=== PATIENT | female | born 1975 | race Caucasian/White ===

== ENCOUNTER 2017-10-16 12:44 | Emergency (ER) | payer MEDICARE, MEDICAID ==
--- NOTE | 2017-10-16 14:23 | CT ---
CT FACIAL BONES WITH CORONAL AND SAGITTAL REFORMATIONS: HISTORY: Injury. Fall. Left-sided facial pain. FINDINGS: No facial bone fracture is seen. No temporomandibular dislocation is identified. POS: [facility] [place]
== END 2017-10-16 14:23 | disposition home or self-care (01) ==
LOC: SCSER 12:44
DX: S00.83XA Contusion of other part of head, initial encounter (principal); F41.9 Anxiety disorder, unspecified; F31.9 Bipolar disorder, unspecified; F43.10 Post-traumatic stress disorder, unspecified; Z87.891 Personal history of nicotine dependence; Z79.899 Other long term (current) drug therapy; W19.XXXA Unspecified fall, initial encounter
CPT/HCPCS: 70486

== ENCOUNTER 2017-11-04 12:04 | Observation (INO) | payer MEDICARE, MEDICAID ==
--- NOTE | 2017-11-04 12:27 | RAD ---
PORTABLE CHEST: History: Chest pain. Comparison: 01-24-14 FINDINGS: Lungs are clear. Heart and mediastinum appear unremarkable. Vascular markings are normal. IMPRESSION: No acute finding. POS: [facility]
[2017-11-04] MEDS ORDERED: Nitroglycerin 2% Ointment 1 INCH/1 GM Packet ONE (12:47)
[2017-11-04 12:48] LABS: #Basophils 0.1 thou/uL (0.0-0.2); #Eosinphils 0.2 thou/uL (0.0-0.7); #Lymphocytes 5.1 thou/uL (1.20-3.40); #Monocytes 1.8 thou/uL (0.11-0.59); #Neutrophils 11.4 thou/uL (1.40-6.50); %Basophils 0.4 % (0.0-1.0); %Eosinophils 1.2 % (0.0-10.0); %Lymphocytes 27.2 % (21.0-51.0); %Monocytes 9.6 % (0.0-10.0); %Neutrophils 61.6 % (42.0-75.0); Band 1 % (5-11); Eosinophils 1 % (0-10); Hemoglobin 17.4 g/dL (12.0-16.0); Lymphocytes 25 % (21-51); MDiff Complete? YES; Mean Corpuscular HGB CONC 33.6 g/dL (32.0-36.0); Mean Corpuscular Hemoglobin 29.4 pg (27.0-31.0); Mean Corpuscular Volume 87.6 fl (81.0-99.0); Mean Platelet Volume 6.9 fL (7.4-10.4); Monocytes 2 % (0-10); Neutrophil 64 % (42-75); Platelet Count 391 thou/uL (130-400); RBC Distribution Width 14.1 % (11.5-14.5); RBC Morphology Normal; Reactive Lymphocytes 6 % (0-10); Red Blood Cell (RBC) Count 5.91 mill/uL (4.20-5.40); White Blood Cell (WBC) Count 18.6 thou/uL (4.8-10.8)
[2017-11-04 13:03] LABS: Troponin I Less than 0.010 ng/mL (< 0.028)
[2017-11-04 13:09] LABS: ALT (SGPT) 24 U/L (8-55); AST (SGOT) 22 U/L (5-34); Albumin 4.3 g/dL (3.5-5.0); Alkaline Phosphatase 183 U/L (40-150); Anion Gap 17 mmol/L (10-20); BUN (Urea Nitrogen) 14 mg/dL (7.0-18.7); Bilirubin, Total 0.7 mg/dL (0.2-1.2); CK (CPK) 42 U/L (29-168); Calc. Creatinine Clearance 0 mL/min (70-130); Carbon Dioxide 20 mmol/L (22-29); Chloride 103 mmol/L (98-107); Estimated GFR-MDRD 83; Globulin 3.9 g/dL (2.4-3.5); Glucose 107 mg/dL (70-105); Potassium 3.6 mmol/L (3.5-5.1); Protein, Total 8.2 g/dL (6.0-8.3); Sodium 136 mmol/L (136-145)
[2017-11-04] MEDS ORDERED: Labetalol HCl 100 MG/20 ML VIAL ONE (13:37)
[2017-11-04 13:47] LABS: Lipase 17 U/L (8-78)
[2017-11-04 13:49] LABS: Bilirubin Negative (Negative); Blood, Urine Negative (Negative); Clarity CLEAR (Clear); Glucose, Urine (Dipstick) Negative (Negative); Leukocyte Negative (Negative); Nitrite Negative (Negative); Protein, Urine (Dipstick) Negative (Neg-Trace); pH, Urine 6.5 (5.0-9.0)
[2017-11-04] MEDS ORDERED: hydrALAZINE 20 MG/ML VIAL SLOW IVP PRN (15:18)
[2017-11-04 16:08] LABS: Troponin I Less than 0.010 ng/mL (< 0.028)
[2017-11-04] MEDS ORDERED: Ondansetron ODT 4 MG TAB PO PRN (16:34)
[2017-11-04] MEDS ORDERED: Acetaminophen 325 MG TAB PO PRN (16:34)
[2017-11-04 16:38] VITALS: BMI 31.2
[2017-11-04] MEDS ORDERED: Nitroglycerin 0.4 MG TAB (25 Tab Bottle) SL PRN (17:14)
[2017-11-04] MEDS ORDERED: clonazePAM 0.5 MG TAB PO PRN (17:19)
[2017-11-04 19:16] LABS: Troponin I 0.013 ng/mL (< 0.028)
--- NOTE | 2017-11-04 19:37 | HP-2 ---
CODE STATUS: FULL. PRIMARY CARE PHYSICIAN: Dr. Anderson. ATTENDING: Dr. Benjamin. RESIDENT: Dr. Atkinson. CHIEF COMPLAINT: Chest pain. HISTORY OF PRESENT ILLNESS: This is a 42-year-old female with 2-day history of chest pains and a 1-m [facility] history of recurrent syncope. She was sent over from Dr. Espino's office for high blood press ure and chest pain today. She said she gets diaphoretic, nauseous and lightheaded during these episo brad. She said that she has had at least 2 episodes of syncope during the last month as well. She st ates she feels weak often. She describes the pain as substernal and has improved with nitroglycerin. She does admit to palpitations at times. She denies any radiation of the pain. She denies any vom iting or diarrhea or recent illness at this time. No other complaints offered. In the ER, she was g iven nitroglycerin, aspirin, labetalol. PAST MEDICAL HISTORY: Significant for elevated blood pressure without a diagnosis of hypertension, e levated hemoglobin, elevated white blood cell count, PTSD, anxiety, depression, hidradenitis suppurat zara, ichthyosis and GERD. PAST SURGICAL HISTORY: Significant for bilateral lymph node dissections, knee surgeries, hysterectom y. ALLERGIES: CAFFEINE, CHOCOLATE PRODUCTS, SHELLFISH and AUGMENTIN. MEDICATIONS: Tramadol 50 mg, Imitrex 25 mg, ibuprofen 600 mg, Linzess 290 mcg, Nasacort, doxepin 100 mg, hydroxyzine 25 mg, Seroquel 300 mg, Klonopin 1 mg and sertraline 100 mg. FAMILY HISTORY: Significant for heart disease. SOCIAL HISTORY: She does admit to a 96-wuyr-cnuo smoking history. She quit 2 years ago. Denies any alcohol or drug use. REVIEW OF SYSTEMS: General: She does admit to fevers and chills. A 5-pound weight loss in the last week because her appetite has been poor and fatigue. ENT: Denies nasal congestion, rhinorrhea, sor e throat. Respiratory: Denies cough, congestion. She does admit to shortness of breath. Cardiovas cular: She denies chest pain, palpitations. Denies any edema. Gastrointestinal: She admits to isaac sea. Denies any vomiting, diarrhea, constipation, abdominal pain, or GI bleeding. Genitourinary: D enies incontinence, dysuria. Skin: She does admit to rashes and lesions. She has longstanding derm atologic condition. Neurologic: She admits to weakness into syncope. Psychiatric: She does admit to anxiety and depression. PHYSICAL EXAMINATION: VITAL SIGNS: Blood pressure 143/98, pulse is 65, respirations 15, temperature max 98.6, pulse oximet ry 98% on room air, current weight is 91 kilos. GENERAL: She is alert and oriented x4. Well-developed, appropriately interactive. HEENT: PERRLA. Conjunctivae within normal limits. ENT: Tympanic membranes were pearly espinoza without bulging or erythema. Nasal mucosa and oropharynx w ithin normal limits. NECK: Supple, no lymphadenopathy, no thyromegaly. CARDIOVASCULAR: Regular rate and rhythm. No murmurs, no gallops. Radial and pedal pulses equal ermias aterally. RESPIRATORY: Normal effort, no retractions. Lungs are clear to auscultation bilaterally. SKIN: Warm and dry. She does have whole body scaling lesions present. ABDOMEN: Soft, nontender to palpation. Bowel sounds are present x4. No mass or distention. EXTREMITIES: No clubbing, cyanosis or edema. MUSCULOSKELETAL: Structure, tone. Muscle strength and range of motion within normal limits. NEUROLOGIC: No focal neurologic deficits, sensation. Cranial nerves II-XII grossly intact. GCS was 15. PSYCHIATRIC: Appropriate. LABORATORY DATA: She had a white blood cell count of 18.6, platelet count 391, hemoglobin 17.4, stephanie tocrit 51.8, MCV 87.6, percent neutrophils 61.6. Sodium 136, potassium 3.6, chloride 103, bicarbonat e 20, BUN 14, creatinine 0.76, glucose 107. CK 42, CK-MB 1.0, troponin I less than 0.01. Calcium wa s 10.0, total protein 8.2. Albumin 4.3, total bilirubin 0.7, AST was 22, ALT was 24, alkaline phosph atase was 183. She had an EKG that showed normal sinus rhythm. Chest x-ray that showed nothing acut e. ASSESSMENT AND PLAN: A 42-year-old female with: 1. Atypical chest pain. We will trend her troponins. Get a repeat EKG. If she is symptomatic, we also put in for a mag, phos, TSH and a BNP. We have scheduled her for a stress and also fasting lipi d panel. The patient was seen at Dr. Espino's office and he said that he would see her later today , so we put in a formal consultation for Dr. Espino, we will also manage her blood pressure and her heart score was 2. 2. Hypertensive urgency. We will give her BP control with p.r.n. hydralazine as well as initiating hydrochlorothiazide. 3. Syncope. We are going to get an echo to determine if it is a cardiac cause. 4. Leukocytosis. We will track with a CBC. 5. Anxiety and depression. We will continue her home meds. DISPOSITION AND LENGTH OF HOSPITAL STAY: Will be observation and 1 day. Symptomatic medication will be provided. History and physical exam as well as management have been discussed with Dr. Travis.
[2017-11-04] MEDS: Nitroglycerin 2% Ointment 1 INCH/1 GM Packet TOP SCH (20:05)
[2017-11-04] MEDS ORDERED: clonazePAM 1 MG TAB PO SCH (21:00)
[2017-11-05 05:50] LABS: #Basophils 0.2 thou/uL (0.0-0.2); #Eosinphils 0.2 thou/uL (0.0-0.7); #Lymphocytes 4.3 thou/uL (1.20-3.40); #Monocytes 1.9 thou/uL (0.11-0.59); #Neutrophils 10.6 thou/uL (1.40-6.50); %Basophils 0.9 % (0.0-1.0); %Eosinophils 1.3 % (0.0-10.0); %Lymphocytes 25.3 % (21.0-51.0); %Monocytes 10.8 % (0.0-10.0); %Neutrophils 61.7 % (42.0-75.0); Hemoglobin 16.4 g/dL (12.0-16.0); Mean Corpuscular HGB CONC 34.3 g/dL (32.0-36.0); Mean Corpuscular Hemoglobin 29.8 pg (27.0-31.0); Mean Corpuscular Volume 86.9 fl (81.0-99.0); Mean Platelet Volume 7.3 fL (7.4-10.4); Platelet Count 333 thou/uL (130-400); RBC Distribution Width 14.1 % (11.5-14.5); Red Blood Cell (RBC) Count 5.49 mill/uL (4.20-5.40); White Blood Cell (WBC) Count 17.1 thou/uL (4.8-10.8)
[2017-11-05 06:14] LABS: Anion Gap 15 mmol/L (10-20); BUN (Urea Nitrogen) 18 mg/dL (7.0-18.7); Calc. Creatinine Clearance 136 mL/min (70-130); Calcium 9.5 mg/dL (7.8-10.44); Carbon Dioxide 22 mmol/L (22-29); Cardiac Risk 5.3 (Less than 4.5); Chloride 104 mmol/L (98-107); Cholesterol 224 mg/dl (< 200 Desired); Estimated GFR-MDRD 85; Glucose 112 mg/dL (70-105); HDL Cholesterol 42 mg/dL (>60 Neg Risk); LDL Cholesterol, Calculated 161 mg/dL; Phosphorus 3.5 mg/dL (2.3-4.7); Potassium 3.6 mmol/L (3.5-5.1); Sodium 137 mmol/L (136-145); Triglycerides 107 mg/dL (Less than 150)
[2017-11-05] MEDS ORDERED: Hydrochlorothiazide 25 MG TAB PO SCH (09:00)
[2017-11-05] MEDS ORDERED: Docusate 100 MG CAP PO SCH (09:00)
[2017-11-05] MEDS: Nitroglycerin 2% Ointment 1 INCH/1 GM Packet TOP SCH (10:27)
[2017-11-05 12:21] VITALS: TEMP 97.9
--- NOTE | 2017-11-05 13:03 | NM ---
MYOCARDIAL PERFUSION STUDY: DATE: 11/05/17. HISTORY: Chest pain. RADIOPHARMACEUTICALS: 32.7 mCi Technetium 99m sestamibi, IV at stress, and 9.1 mCi Technetium 99m sestamibi, IV at rest. MEDICATIONS: 16.4 mL (49.3 mg) adenosine, IV. FINDINGS: There is normal uptake and distribution of radiotracer seen throughout the left ventricular myocardiu m on the stress acquisition. No reversible defects are seen between the stress and resting acquisiti ons. Gated images demonstrate normal ventricular wall thickening with mild hypokinesis involving the septum. The calculated left ventricular ejection fraction is 57%. There is elevation in the transi ent ischemic dilatation ratio of 1.24. IMPRESSION: 1. Normal myocardial perfusion study without evidence of a reversible defect seen to suggest ischemi a. 2. Slight hypokinesis involving the septum. 3. Nonspecific elevation of the transient ischemic dilatation ratio which is 1.24. 4. Normal left ventricular ejection fraction of 57%. POS: [facility]
[2017-11-05] MEDS ORDERED: Sod Chloride/Lan/MO/Peet,Wh (Lubriderm) Lotion 180 ml Bottle TOP PRN (13:18)
[2017-11-05 13:29] VITALS: BP 139/102
--- NOTE | 2017-11-05 14:16 | PDOC.FM ---
- Subjective Subjective: No acute events overnight. Pt reports recurrence of symptoms with stress test, but otherwise feels better. She currently denies cp, sob, nvdc, pleuritic type pain. - Objective Vital Signs & Weight: Vital Signs (12 hours) Temp Pulse Resp BP BP Pulse Ox 11/05/17 13:25 81 139/102 H 11/05/17 12:18 97.9 F 90 20 167/105 H 96 11/05/17 08:00 98.2 F 96 16 11/05/17 07:42 98.2 F 96 16 135/100 H 97 11/05/17 03:50 98.4 F 101 H 20 107/81 95 Weight Weight 88.541 kg I&O: 11/04/17 11/05/17 11/06/17 06:59 06:59 06:59 Intake Total 1485 240 Output Total 400 Balance 1085 240 Result Diagrams: 11/05/17 05:32 11/05/17 05:32 <Burak Sarabia - Last Filed: 11/05/17 14:13> - Objective Vital Signs & Weight: Vital Signs (12 hours) Temp Pulse Resp BP BP Pulse Ox 11/05/17 13:25 81 139/102 H 11/05/17 12:18 97.9 F 90 20 167/105 H 96 11/05/17 08:00 98.2 F 96 16 11/05/17 07:42 98.2 F 96 16 135/100 H 97 Weight Weight 88.541 kg I&O: 11/04/17 11/05/17 11/06/17 06:59 06:59 06:59 Intake Total 1485 240 Output Total 400 Balance 1085 240 Result Diagrams: 11/05/17 05:32 11/05/17 05:32 <Jeanie García - Last Filed: 11/05/17 17:28> Phys Exam - Physical Examination Constitutional: NAD HEENT: PERRLA, sclera anicteric Neck: no JVD Respiratory: no wheezing, no rales, no rhonchi, clear to auscultation bilateral Cardiovascular: RRR, no significant murmur, no rub Gastrointestinal: soft, non-tender, no distention, positive bowel sounds Musculoskeletal: no edema, pulses present Neurological: non-focal, moves all 4 limbs Skin: no rash <Burak Sarabia Last Filed: 11/05/17 14:13> Dx/Plan (1) Atypical chest pain Code(s): R07.89 - OTHER CHEST PAIN Status: Acute (2) Hypertensive urgency Code(s): I16.0 - HYPERTENSIVE URGENCY Status: Acute (3) Anxiety Code(s): F41.9 - ANXIETY DISORDER, UNSPECIFIED Status: Acute (4) Depression Code(s): F32.9 - MAJOR DEPRESSIVE DISORDER, SINGLE EPISODE, UNSPECIFIED Status : Acute (5) PTSD (post-traumatic stress disorder) Code(s): F43.10 - POST-TRAUMATIC STRESS DISORDER, UNSPECIFIED Status: Acute - Plan Plan: -cardiology consulted, appreciate recommendations -cardizem added for BP control, will monitor -cardiac stress showed no evidence of ischemia -d-dimer ordered, per cardiology, will f/u with results and CT-A if positive -labile pressures, will titrate medications and dc when stable <Burak Sarabia - Last Filed: 11/05/17 14:13> Attending Addendum - Attending Addendum I personally evaluated the patient and discussed the management with Dr. Sarabia on 11/05/17. I agree with the History, Examination, Assessment and Plan documented above with any addition or exceptions noted below. Patient's DDimer negative, no further workup for PE needed. BPs markedly improved on Cardizem. Per cardiology, OK to discharge today. <Jeanie García - Last Filed: 11/05/17 17:28>
[2017-11-05] MEDS ORDERED: Mag-Al 1200 mg/1200 mg/30 ML UDCUP PO PRN (15:16)
[2017-11-05] MEDS ORDERED: Fluconazole 100 MG TAB PO SCH (16:00)
[2017-11-05] MEDS ORDERED: ADENOSINE 60 MG/20 ML VIAL ONE (16:08)
--- NOTE | 2017-11-06 07:15 | EKG ---
Test Reason : STAT Blood Pressure : / mmHG Vent. Rate : 115 BPM Atrial Rate : 115 BPM P-R Int : 122 ms QRS Dur : 084 ms QT Int : 340 ms P-R-T Axes : 066 061 071 degrees QTc Int : 470 ms Sinus tachycardia Possible Left atrial enlargement Borderline ECG When compared with ECG of 25-JUL-2015 10:48, Vent. rate has increased BY 46 BPM Confirmed by BILLIE GONZÁLES, SMichelle ([id number]) on 11/06/2017 7:14:52 AM Referred By: TAMIA Confirmed By:DR. Javad WISE MD
--- NOTE | 2017-11-08 11:07 | DIS-2 ---
LOCATION: [facility] in [place], [place]. DATE OF ADMISSION: 11/04/2017 DATE OF DISCHARGE: 11/05/2017 RESIDENT PHYSICIAN: Dr. Burak Sarabia. ADMITTING ATTENDING: Dr. Yenifer Benjamin. DISCHARGE ATTENDING: Dr. Jeanie García. CONSULTATIONS: None. PROCEDURES: 1. Chest x-ray done on 11/04/2017 showed no acute findings. 2. Nuclear medicine stress test done on 11/05/2017 showed normal myocardial perfusion without eviden ce of reversible defects seen to suggest ischemia. Slight hypokinesis involving the septum. Nonspec ific elevation of the transient ischemic dilatation ratio, which is 1.24. Normal left ventricular ej ection fraction of 57%. PRIMARY DIAGNOSIS: Atypical chest pain. SECONDARY DIAGNOSES: 1. Hypertensive urgency. 2. Vulvovaginal candidiasis. 3. Anxiety. 4. Depression. 5. Post-traumatic stress disorder. DISCHARGE MEDICATIONS: 1. Cardizem 180 mg p.o. daily. 2. Hydrochlorothiazide 12.5 mg p.o. daily. 3. Clonazepam 0.5 mg p.o. as needed. 4. Doxepin 100 mg p.o. at bedtime. 5. Hydroxyzine 25 mg 1-2 tabs p.o. q.4 hours. 6. Linzess 290 mcg p.o. on Wednesday, Wednesday, and Wednesday. 7. Seroquel 600 mg p.o. at bedtime. 8. Sertraline 200 mg p.o. at bedtime. DISCONTINUED MEDICATIONS: None. HISTORY OF PRESENT ILLNESS AND HOSPITAL COURSE: Patient is a 42-year-old female who came in with a 2 -day history of chest pain and 1-month history of recurrent syncope and she was sent over from her ca rdiologist, Dr. Espino's office for high blood pressure and chest pain. She reports diaphoresis, n ausea, lightheadedness during these episodes. Reports at least 2 episodes of syncope during the last month. She describes her pain as substernal, which was relieved with nitroglycerin. She also compl ained of palpitations at times. On admission to the ED, patient was found to have an elevated white count of 18.6, however, there is no bandemia noted. The patient was actually admitted or transferred to the ER because the hunter guide was concerned with possible pulmonary embolism. Her D-dimer on 0 11/05/2017 was found to be 0.43. Her electrolytes were within normal limits. A fasting lipid panel w as drawn. Triglycerides are found to be 107, cholesterol 224, LDL cholesterol 161, HDL cholesterol 4 2, lipase was 73. Her urinalysis was negative. Overall, the patient had uncomplicated hospital course was not found to have pulmonary embolism and a cute coronary syndrome was also ruled out. CK-MB was 1. Troponin I was less than 0.010 and 0.013. BNP was also drawn and found to be 20.1. DISPOSITION: 1. Patient left the hospital in stable condition. 2. Location: Home. 3. Diet: Heart healthy. 4. Activity: Ad-sheldon. 5. Followup: Follow up with primary care provider in 7-10 days and follow up with Dr. Michael Espino in 2-3 weeks following discharge. Patient's primary care provider is Dr. Won Anderson and she is to follow up in 7 days with him.
--- NOTE | 2017-11-18 20:43 | STRESS ---
Acquisition Time: 2017-11-05 11:07:51 Total Exercise Time: 00:04:00 Test Indications: CHEST PAIN Medications: Protocol: ADENOSINE Max HR: 090 BPM 51% of Pred: 176 BPM Max BP: 160/082 mmHG Max Work Load: 1.0 METS RESTING ECG: NORMAL SINUS RHYTHM AT 80 BPM SYMPTOMS: CHEST TIGHTNESS NORMAL BP RESPONSE ECTOPY: NONE ECG STRESS: NO SIGNIFICANT CHANGES INTERPRETATION: NEGATIVE ECG/AWAIT NUCLEAR IMAGES FOR DEFINITIVE DIAGNOSIS Confirmed by RAHUL UREÑA M.D. ([id number] on 11/18/2017 8:43:08 PM Referred By: MD Fracisco RIVAS Confirmed By:RAHUL UREÑA M.D.
== END 2017-11-05 17:24 | disposition home or self-care (01) ==
LOC: ERS 12:04 → 2SW 13:54
PROVIDERS: ADMIT Family Medicine; ATTEND Family Medicine
DX: R07.89 Other chest pain (principal); I16.0 Hypertensive urgency; I10 Essential (primary) hypertension; D72.829 Elevated white blood cell count, unspecified; F32.9 Major depressive disorder, single episode, unspecified; F41.9 Anxiety disorder, unspecified; F43.10 Post-traumatic stress disorder, unspecified; K21.9 Gastro-esophageal reflux disease without esophagitis; Z91.013 Allergy to seafood; Z91.018 Allergy to other foods; Z88.8 Allergy status to other drugs, medicaments and biological substances; Z90.710 Acquired absence of both cervix and uterus; Z98.890 Other specified postprocedural states; Z87.891 Personal history of nicotine dependence
CPT/HCPCS: 71045; 78452; 80048; 80053; 80061; 81003; 82550; 82553; 83690; 83735; 83880; 84100; 84484 ×2; 85025 ×2; 85379; 93005; 93017; 94760 ×3; 96374; 96375; 99285; A9500; G0378; 36415; 93010; J0153; J0360; Q0162

== ENCOUNTER 2017-11-29 09:13 | Outpatient (CLI) | payer MEDICARE, MEDICAID ==
[2017-11-29] MEDS ORDERED: Iopamidol 370 76% 100 ML VIAL ONE (11:10)
--- NOTE | 2017-11-29 11:52 | CT ---
CT ABDOMEN WITH AND WITHOUT IV CONTRAST: Date: 11/29/17 HISTORY: Hypertension, palpitations. FINDINGS: There are minimal dependent changes at the lung bases and trace pericardial effusion. There is a calc ified granuloma in the spleen. The liver, pancreas, adrenal glands, and kidneys are normal. No calcif ied gallstones are seen. No free air, free fluid, or lymphadenopathy seen in the abdomen. There are v ascular calcifications without evidence of aneurysmal dilatation of the abdominal aorta. The small georgie wel loops are not abnormally dilated. There are degenerative changes in the spine. IMPRESSION: 1. Trace pericardial effusion. 2. Calcified granuloma in the spleen. 3. No evidence of adrenal mass. POS: [facility]
== END 2017-11-29 09:14 | disposition home or self-care (01) ==
LOC: CT 09:13
PROVIDERS: ATTEND Family Medicine
DX: I10 Essential (primary) hypertension (principal); R00.2 Palpitations; R82.5 Elevated urine levels of drugs, medicaments and biological substances; D73.89 Other diseases of spleen
CPT/HCPCS: 74170

== ENCOUNTER 2018-01-07 13:33 | Outpatient (CLI) | payer MEDICARE, MEDICAID ==
--- NOTE | 2018-01-07 15:10 | ULT ---
PELVIC ULTRASOUND: HISTORY: Pelvic pain. Positive test. The patient is report to have had a previous total hysterecto my. TECHNIQUE: Transabdominal endovaginal imaging of the pelvis is performed. FINDINGS: No evidence of a uterus or adnexa. No evidence of free fluid. IMPRESSION: Unremarkable pelvic ultrasound. No evidence of expected normal pelvic structures. Given that the pa tient has a positive test, a gynecological consultation is recommended. Correlate for poss ible malignant process/neoplasm that is creating beta hCG. CODE T POS: [facility]
== END 2018-01-07 13:34 | disposition home or self-care (01) ==
LOC: ULT 13:33
PROVIDERS: ATTEND Family Medicine
DX: Z32.01 Encounter for pregnancy test, result positive (principal); R10.2 Pelvic and perineal pain
CPT/HCPCS: 76856

== ENCOUNTER 2018-07-05 10:06 | Emergency (ER) | payer MEDICARE, MEDICAID ==
[2018-07-05 11:06] LABS: #Basophils 0.1 thou/uL (0.0-0.2); #Eosinphils 0.3 thou/uL (0.0-0.7); #Lymphocytes 3.8 thou/uL (1.20-3.40); #Monocytes 0.8 thou/uL (0.11-0.59); #Neutrophils 6.7 thou/uL (1.40-6.50); %Basophils 0.5 % (0.0-1.0); %Eosinophils 2.7 % (0.0-10.0); %Lymphocytes 32.6 % (21.0-51.0); %Monocytes 6.9 % (0.0-10.0); %Neutrophils 57.2 % (42.0-75.0); Hemoglobin 14.9 g/dL (12.0-16.0); Mean Corpuscular HGB CONC 35.5 g/dL (32.0-36.0); Mean Corpuscular Hemoglobin 31.1 pg (27.0-31.0); Mean Corpuscular Volume 87.6 fL (78.0-98.0); Mean Platelet Volume 7.5 fL (7.4-10.4); Platelet Count 337 thou/uL (130-400); RBC Distribution Width 14.2 % (11.5-14.5); Red Blood Cell (RBC) Count 4.79 mill/uL (4.20-5.40); White Blood Cell (WBC) Count 11.8 thou/uL (4.8-10.8)
[2018-07-05] MEDS ORDERED: Ketorolac Tromethamine 30 MG/ML VIAL ONE (11:17)
[2018-07-05 11:32] LABS: ALT (SGPT) 16 U/L (8-55); AST (SGOT) 16 U/L (5-34); Albumin 4.1 g/dL (3.5-5.0); Alkaline Phosphatase 180 U/L (40-150); Anion Gap 12 mmol/L (10-20); BUN (Urea Nitrogen) 14 mg/dL (7.0-18.7); Bilirubin, Total 0.4 mg/dL (0.2-1.2); CRP (Inflammatory) 3.51 mg/dL (= or < 0.5); Calc. Creatinine Clearance 0 mL/min (70-130); Calcium 9.3 mg/dL (7.8-10.44); Carbon Dioxide 22 mmol/L (22-29); Chloride 107 mmol/L (98-107); Estimated GFR-MDRD 81; Globulin 3.6 g/dL (2.4-3.5); Glucose 90 mg/dL (70-105); Potassium 4.2 mmol/L (3.5-5.1); Protein, Total 7.7 g/dL (6.0-8.3); Sodium 137 mmol/L (136-145)
[2018-07-05] MEDS ORDERED: HYDROcodone/Acetaminophen 5/325 mg Tablet ONE (12:53)
--- NOTE | 2018-07-05 13:26 | CT ---
FACIAL BONES CT WITHOUT CONTRAST: Date: 07/05/18 HISTORY: Evaluate for mastoiditis. Patient is having left ear pain. COMPARISON: 10/16/17. FINDINGS: Visualized brain parenchyma and orbits are unremarkable. Bilateral ocular lenses are appropriately lo cated. Both globes are intact. Retrobulbar fat is preserved. Symmetric attenuation of the optic nerve s and ocular rectus muscles. Visualized oral cavity is unremarkable. Nonspecific enlarged bilateral Level II lymph nodes. Right Level II lymph node measures 1.7 x 1.5 cm. Left Level II lymph node measures 1.3 x 1.4 cm. Lymphadenopathy is similar to the previous examinati on and is of uncertain significance. Visualized upper cervical spine is unremarkable. There is symmetric aeration of the frontal sinuses and ethmoid air cells. Minimal mucosal disease of the sphenoid sinuses, left greater than right. There does appear to be previous bilateral ethmoidecto mies, unchanged. Coronal reformatted images demonstrate bilateral uncinectomy. Both ostiomeatal compl exes appear to be patent. Mild mucosal disease involving the left maxillary sinus. Nasal septum is in tact. Based on the images provided, there is no significant opacification of the right or left mastoid air cells. There appears to be appropriate aeration of the visualized middle ears. Both external auditory canals appear to be patent and symmetric. IMPRESSION: No significant evidence of mastoid air cell opacification. POS: [facility]
== END 2018-07-05 15:47 | disposition home or self-care (01) ==
LOC: ERS 10:06
DX: M26.602 Left temporomandibular joint disorder, unspecified (principal); F41.9 Anxiety disorder, unspecified; F31.9 Bipolar disorder, unspecified; F43.10 Post-traumatic stress disorder, unspecified; Z79.899 Other long term (current) drug therapy
CPT/HCPCS: 70486; 80053; 85025; 85652; 86140; 96361; 96374; J1885

== ENCOUNTER 2018-11-10 09:29 | Outpatient (CLI) | payer MEDICARE, MEDICAID ==
--- NOTE | 2018-11-10 09:58 | RAD ---
THREE VIEWS RIGHT KNEE: History: Patient heard pop after fall, medial pain. FINDINGS: AP, lateral, and oblique views right knee obtained. There is an area of cortical disruption involving the medial aspect of the distal right femur. This m ay represent possible aggressive or erosive lesion. I do recommend further evaluation using bone scan to evaluate the entire body as well as this area to determine whether the area of increased metaboli c activity. In addition, the right knee demonstrates osteophytes and degenerative changes compatible with osteoar thritis in the right knee. IMPRESSION: Distal right medial femoral area of possible cortical irregularity and erosive changes. Bone scan rec ommended. Code T POS: [facility]
== END 2018-11-10 09:30 | disposition home or self-care (01) ==
LOC: BICRAD 09:29
PROVIDERS: ATTEND Family Medicine
DX: M25.561 Pain in right knee (principal)

== ENCOUNTER 2018-11-22 14:55 | Outpatient (CLI) | payer MEDICARE, MEDICAID ==
--- NOTE | 2018-11-22 16:31 | MRI ---
MR OF THE RIGHT KNEE WITHOUT CONTRAST: 11/22/18 INDICATION: History of right knee pain with multiple right knee scopes and history of fall. COMPARISON: Right knee radiograph dated 11/10/18. FINDINGS: There are prominent marginal osteophytes suspected in the major compartments of the right knee. There is a moderately prominent surface osteophyte involving the lateral femoral condyle measuring 7 x 8 m m and its greatest mediolateral AP dimension on image 19, series 5, image 8 of series 7. No Holguin's cyst is evident. IT band and popliteus appear within normal limits. The ACL, PCL, MCL and LCLC are intact. The extensor mechanism is intact. The medial and lateral menisci appear intact. IMPRESSION: 1. Moderate osteoarthrosis of the right knee. 2. Medial and lateral menisci are intact. 3. The ACL, PCL, MCL and LCLC are intact. POS: [facility]
== END 2018-11-22 14:56 | disposition home or self-care (01) ==
LOC: BICMRI 14:55
PROVIDERS: ATTEND Family Medicine
DX: M25.561 Pain in right knee (principal); M17.11 Unilateral primary osteoarthritis, right knee

== ENCOUNTER 2018-11-22 18:22 | Emergency (ER) | payer MEDICARE, OTHER ==
--- NOTE | 2018-11-22 19:37 | RAD ---
FOUR VIEWS RIGHT KNEE: 11/22/18 HISTORY: Fall with right knee pain. AP, lateral and both oblique views right knee obtained. Comparison made to previous exam from 01/15/16 . Four views right knee demonstrates osteophytes in the medial and lateral compartments of the right kn ee. Findings compatible with osteoarthritis. No evidence of acute fractures or bony lesions seen. No evidence of joint effusions seen. IMPRESSION: Osteoarthritis right knee with no evidence of acute fracture seen. POS: [facility]
== END 2018-11-22 20:29 | disposition home or self-care (01) ==
LOC: ERS 18:22
DX: M25.561 Pain in right knee (principal); F31.9 Bipolar disorder, unspecified; F41.9 Anxiety disorder, unspecified; F43.10 Post-traumatic stress disorder, unspecified; Z79.899 Other long term (current) drug therapy

== ENCOUNTER 2019-01-10 11:26 | Outpatient (CLI) | payer MEDICARE, MEDICAID ==
--- NOTE | 2019-01-10 12:19 | RAD ---
RIGHT FOOT THREE VIEWS: History: Right foot pain. Right great toe pain. FINDINGS: The tarsals appear intact. Metatarsals and phalanges appear intact. MTP joints unremarkable. IMPRESSION: No acute finding. POS: [facility]
== END 2019-01-10 11:27 | disposition home or self-care (01) ==
LOC: BICRAD 11:26
PROVIDERS: ATTEND Family Medicine
DX: M79.674 Pain in right toe(s) (principal)

== ENCOUNTER 2019-11-09 08:36 | Outpatient (CLI) | payer MEDICARE, MEDICAID ==
[2019-11-09 13:56] LABS: #Basophils 0.2 thou/uL (0.0-0.2); #Eosinphils 0.7 thou/uL (0.0-0.7); #Lymphocytes 5.3 thou/uL (1.20-3.40); #Neutrophils 6.3 thou/uL (1.40-6.50); %Basophils 1.4 % (0.0-1.0); %Eosinophils 5.3 % (0.0-10.0); %Lymphocytes 38.9 % (21.0-51.0); %Monocytes 7.7 % (0.0-10.0); %Neutrophils 46.7 % (42.0-75.0); Hemoglobin 15.4 g/dL (12.0-16.0); Mean Corpuscular HGB CONC 35.2 g/dL (32.0-36.0); Mean Corpuscular Hemoglobin 30.8 pg (27.0-31.0); Mean Corpuscular Volume 87.5 fL (78.0-98.0); Mean Platelet Volume 7.4 fL (7.4-10.4); Platelet Count 324 thou/uL (130-400); RBC Distribution Width 14.1 % (11.5-14.5); Red Blood Cell (RBC) Count 4.99 mill/uL (4.20-5.40); White Blood Cell (WBC) Count 13.5 thou/uL (4.8-10.8)
[2019-11-09 14:19] LABS: Anion Gap 13 mmol/L (10-20); BUN (Urea Nitrogen) 11 mg/dL (7.0-18.7); Calc. Creatinine Clearance 0 mL/min (70-130); Carbon Dioxide 25 mmol/L (22-29); Chloride 107 mmol/L (98-107); Estimated GFR-MDRD 84; Glucose 86 mg/dL (70-105); Potassium 4.1 mmol/L (3.5-5.1); Sodium 141 mmol/L (136-145)
[2019-11-09 14:25] LABS: INR-International Normal Ratio 0.9; Prothrombin Time 12.6 SEC (12.0-14.7)
[2019-11-09 14:42] LABS: Bilirubin Negative (Negative); Blood, Urine Negative (Negative); Clarity Clear (Clear); Glucose, Urine (Dipstick) Normal (Negative); Leukocyte Negative Leu/uL (Negative); Nitrite Negative (Negative); Protein, Urine (Dipstick) Negative (Neg-Trace); RBC/HPF None Seen HPF (0-3); Squamous Epithelial 0-3 HPF (0-3); Urobilinogen Normal mg/dL (Less than 2); WBC/HPF 0-3 HPF (0-3)
[2019-11-09 14:43] LABS: Bacteria/HPF 1+ HPF (None Seen)
== END 2019-11-09 08:37 | disposition home or self-care (01) ==
LOC: LABBT 08:36
PROVIDERS: ATTEND Orthopaedic Surgery
DX: Z01.818 Encounter for other preprocedural examination (principal); M17.0 Bilateral primary osteoarthritis of knee
CPT/HCPCS: 80048; 81001; 85025; 85610; 87081; 93005; 93010

== ENCOUNTER 2019-11-21 05:52 | Day surgery (SDC) | payer MEDICARE, MEDICAID ==
[2019-11-21] MEDS ORDERED: Tranexamic Acid 1,000 MG/10 ML VIAL ONE (06:23)
[2019-11-21] MEDS ORDERED: Sodium Chloride 0.9% 100 ML ONE (06:23)
[2019-11-21] MEDS ORDERED: Vancomycin 1.5 GRAM/300 ML BAG 1.5 GM/300 ML BAG ONE (06:23)
[2019-11-21] MEDS ORDERED: Fentanyl 100 MCG/2 ML VIAL ONE ×6 (06:29→10:34)
[2019-11-21] MEDS ORDERED: Midazolam HCl 2 mg/2 ml Vial ONE ×2 (06:29→06:36)
[2019-11-21] MEDS ORDERED: Lidocaine 1% w/Epinephrine 1:100K 20 ML VIAL ONE (06:32)
[2019-11-21] MEDS ORDERED: Bupivacaine PF 0.5% 30 ML VIAL ONE (06:32)
[2019-11-21] MEDS ORDERED: Famotidine/PF 20 mg/2ml Vial ONE (06:36)
[2019-11-21] MEDS ORDERED: Promethazine HCl 25 MG/ML VIAL IM PRN ×3 (07:21→12:37)
[2019-11-21] MEDS ORDERED: Acetaminophen 325 MG TAB PO PRN ×2 (07:21→12:37)
[2019-11-21] MEDS ORDERED: Ondansetron PF 4 MG/2 ML Vial IVP PRN ×2 (07:21→12:37)
[2019-11-21] MEDS ORDERED: HYDROcodone/Acetaminophen 10/325 mg Tablet PO PRN ×2 (07:21)
[2019-11-21] MEDS ORDERED: Zolpidem Tartrate 5 MG TAB PO PRN ×2 (07:21→12:37)
[2019-11-21] MEDS ORDERED: traMADol HCl 50 MG TAB PO PRN ×3 (07:21→12:37)
[2019-11-21] MEDS ORDERED: Ropivacaine HCl/PF 250 ML in Premix Bag 1 BAG NERVE BLCK SCH (07:21)
[2019-11-21] MEDS ORDERED: Fentanyl 100 MCG/2 ML VIAL IV PRN (07:22)
[2019-11-21] MEDS ORDERED: HYDROmorphone 2 MG/ML VIAL SLOW IVP PRN (08:36)
[2019-11-21] MEDS ORDERED: Promethazine HCl 25 MG/ML VIAL SLOW IVP PRN (08:36)
[2019-11-21] MEDS ORDERED: Ketorolac Tromethamine 30 MG/ML VIAL IVP PRN (08:36)
[2019-11-21] MEDS ORDERED: Meperidine HCl/PF 25 MG/ML VIAL SLOW IVP PRN (08:36)
--- NOTE | 2019-11-21 09:56 | RAD ---
. XR Knee Rt 2 View HISTORY: Right knee replacement FINDINGS: No fracture or dislocation is identified. There are postop changes of total knee arthroplasty in good position and alignment. Soft tissue air is present.
[2019-11-21] MEDS ORDERED: Ketorolac Tromethamine 30 MG/ML VIAL ONE (10:34)
[2019-11-21 11:48] VITALS: BMI 31.9
[2019-11-21] MEDS ORDERED: clonazePAM 0.5 MG TAB PO PRN (11:53)
[2019-11-21] MEDS ORDERED: hydrOXYzine 25 MG TAB PO PRN ×2 (11:54→12:54)
[2019-11-21] MEDS ORDERED: SUMAtriptan Succinate 25 MG TAB PO PRN ×2 (11:56→12:54)
[2019-11-21] MEDS ORDERED: Ketorolac Tromethamine 30 MG/ML VIAL IVP SCH (12:00)
--- NOTE | 2019-11-21 12:17 | PDOC.FPRHP ---
- History of Present Illness Chief Complaint: Consult for medical management after knee replacement History of Present Illness: Ms Felipe is a 44yo female admitted after right knee replacement by Dr Gonzalez. She has a hx of multiple knee surgeries and bilateral OA. Pt reports pain is 8/10, just got up to room 20min ago. Denies shortness of breath or chest pain. Reports good appetite, would like to try eating a salad for lunch. Otherwise no complaints. - Allergies/Adverse Reactions Allergies Allergy/AdvReac Type Severity Reaction Status Date / Time caffeine Allergy Verified 11/21/19 11:48 chocolate flavor Allergy Verified 11/21/19 11:48 shellfish derived Allergy Verified 11/21/19 11:48 - Home Medications Medication Instructions Recorded Confirmed Type Sertraline HCl 200 mg PO HS 01/24/14 11/09/19 History QUEtiapine Fumarate [SEROquel] 600 mg PO HS 04/29/15 11/09/19 History clonazePAM 0.5 tab PO PRN PRN 04/29/15 11/09/19 History clonazePAM 1 mg PO HS 04/29/15 11/09/19 History Doxepin HCl 100 mg PO HS 11/04/17 11/09/19 History hydrOXYzine HCl [Hydroxyzine HCl] 1 - 2 tab PO Q4HR PRN 11/04/17 11/09/19 History Ascorbic Acid [Vitamin C] 1 tab PO DAILY 11/09/19 11/09/19 History Celecoxib 1 tab PO QAM 11/09/19 11/09/19 History Gabapentin 1 tab PO HS 11/09/19 11/09/19 History Multivitamin [Multi-Vitamin Daily] 1 tablet PO DAILY 11/09/19 11/09/19 History SUMAtriptan Succinate [Imitrex] 25 mg PO ASDIR PRN 11/09/19 11/09/19 History - History PMHx: PTSD, Anxiety, Depression, Lamellar Icthyosis, b/l OA, hidradenitis suppurativa, hx of breast and cervical cancer, GERD, IBS, HTN, HLD, Fatty Liver disease PSHx: hysterectomy for cervical cancer, endoscopic sinus surgery 09/2013, Knee surgeries: 03/2013, 07/2016, 09/2016 FHx: HTN, HLD, Breast cancer, ovarian cancer, colon cancer, endometrial cancer Social: Denies alcohol, tobacco and drug use. Reports using nicotine free "pods. " Lives with in an RV on family members property. - Review of Systems General: denies: fever/chills, weight/appetite/sleep changes ENT: denies: nasal congestion, rhinorrhea Respiratory: denies: shortness of breath Cardiovascular: denies: chest pain, edema Gastrointestinal: denies: nausea, vomiting, abdominal pain Skin: reports: other (chronic skin condition). denies: rashes, lesions Musculoskeletal: reports: pain Neurological: denies: numbness, weakness - Vital signs BP: 127/91 HR: 64 RR: 18 Tmax: 98.3 Pox: 98% on RA Wt: 90kg - Physical Exam Constitutional: NAD, awake, alert and oriented, well developed HEENT: normocephalic and atraumatic, PERRLA, conjunctiva clear, grossly normal hearing, MMM, oropharynx clear Neck: supple, trachea midline Heart: RRR, no murmurs/rubs/gallops -Lungs: Bibasilar crackles Abdomen: soft, non-tender, bowel sounds present -Musculoskeletal: right knee with NAI wrap and ice pack. Elevated. Distal pulses present. Wearing SCDs Neurological: no focal deficit -Skin: Diffusely scaly skin Heme/Lymphatic: no unusual bruising or bleeding Psychiatric: normal mood and affect, good judgment and insight, intact recent and remote memory FMR H&P: A/P - Plan Ms Felipe is a 44yo female with multiple psychiatric conditions, HTN, HLD admitted for right knee replacement. Right Knee Replacement - Pain management per ortho - Regular diet - Continue to use IS - PT/OT consulted PTSD/Anxiety/Depression - Resumed home medications HTN/HLD - Resumed home medications DVT ppx: SCDs PCP: Dr Uribe at [facility] FMR H&P: Upper Level - Plan Date/Time: 11/21/19 1214 I, [], have evaluated this patient and agree with findings/plan as outlined by product management intern resident. Pertinent changes/additions are listed here.
--- NOTE | 2019-11-21 12:26 | HP ---
HISTORY OF PRESENT ILLNESS: Ms. Felipe is a 44-year-old female, who presents with 8 years of pain, became disabled secondary to pain, had multiple bilateral surgeries knee arthroscopies 10 years ago. The patient states that she had an allergic reaction to synvisc_, fluid which was negative for signs or culture of infection. The patient has failed conservative measures with previous injections, anti-inflammatories, continued pain despite conservative measures. PAST MEDICAL HISTORY: Hypertension, heart disease, concussion, multiple ear infections, hearing loss, chronic sinusitis, high cholesterol, high blood pressure, stomach ulceration, arthritis, depression, anxiety, bilateral hidradenitis suppurativa, ichthyosis. PAST SURGICAL HISTORY: Bilateral knee arthroscopies, hysterectomy, bilateral resection of axillary hidradenitis. ALLERGIES: TO CAFFEINE, SHELLFISH, AND CHOCOLATE. MEDICATIONS: Include; 1. Ascorbic acid. 2. Celecoxib. 3. Clonazepam. 4. Doxepin. 5. Gabapentin. 6. Hydroxyzine. 7. Multivitamin. 8. Quetiapine. 9. Sertraline. 10. Sumatriptan. SOCIAL HISTORY: The patient denies illicit drug use. She states she is a nonsmoker. No alcohol. REVIEW OF SYSTEMS: Noncontributory. PHYSICAL EXAMINATION: GENERAL: Alert and oriented female, in no acute distress, resting comfortably in bed. EXTREMITIES: Right knee, the patient has skin that is patchy and dry and scaly consistent with ichthyosis. No significant effusion. Her motion is about 10 to 120 degrees. Ligaments intact. Neurovascularly intact distally. IMAGING DATA: Radiographs show early tricompartmental changes. IMPRESSION: Posttraumatic right knee osteoarthritis. ASSESSMENT AND PLAN: I discussed with the patient that she is young to have a knee replacement. I discussed that she may need a revision of this knee replacement before her that this may only last 15 years. I discussed that this is a complex problem. I discussed the risks and benefits of the surgery to include pain, scar, bleeding, infection, decreased range of motion and strength, failure of hardware repair, need for further surgery and removal, damage to vital structures, nerves, arteries, tendons, cartilage, DVT, damage to vital organs, and loss of life or limb. The patient understands these risks. She understands and desires to proceed with surgery. We will plan on surgery. Job ID: [id number] MTDD
[2019-11-21] MEDS ORDERED: diphenhydrAMINE 25 MG CAP PO PRN (12:37)
[2019-11-21] MEDS ORDERED: Fentanyl 100 MCG/2 ML VIAL SLOW IVP PRN ×2 (12:37)
[2019-11-21] MEDS ORDERED: clonazePAM 1 MG TAB PO PRN (12:54)
[2019-11-21] MEDS ORDERED: Ferrous Gluconate 324 MG TAB PO SCH (13:00)
[2019-11-21] MEDS ORDERED: Aspirin 81 mg Enteric Coated Tablet PO SCH (13:00)
[2019-11-21] MEDS ORDERED: Senokot S 8.6-50 MG TAB PO SCH (13:00)
[2019-11-21] MEDS ORDERED: Multivit, Therapeutic 1 TAB PO SCH (13:00)
[2019-11-21] MEDS: Ketorolac Tromethamine 30 MG/ML VIAL IVP SCH ×2 (13:29→21:34)
[2019-11-21] MEDS: CEFAZOLIN 2 GM in Premix Bag 1 BAG IVPB SCH ×2 (13:29→21:34)
[2019-11-21] MEDS: Sodium Chloride 0.9% 1,000 ML IV SCH ×2 (13:34→23:39)
[2019-11-21] MEDS ORDERED: Ondansetron PF 4 MG/2 ML Vial ONE (13:38)
[2019-11-21] MEDS ORDERED: Dexamethasone 20 MG/5 ML VIAL ONE (13:38)
[2019-11-21] MEDS ORDERED: PROPOFOL 200 MG/20 ML VIAL ONE (13:38)
[2019-11-21] MEDS ORDERED: Lidocaine 1% PF 5 ML VIAL ONE (13:38)
[2019-11-21] MEDS ORDERED: Bupivacaine HCl 0.5%/Epinephrine 1:200,000/PF 30 ml Vial ONE (13:38)
[2019-11-21] MEDS ORDERED: Ropivacaine 0.2% HCl/PF (40 MG/20 ML VIAL) ONE (13:38)
[2019-11-21] MEDS: HYDROcodone/Acetaminophen 10/325 mg Tablet PO PRN ×2 (17:33→21:34)
[2019-11-21] MEDS ORDERED: Vancomycin 1.5 GRAM/300 ML BAG 1.5 GM in Premix Bag 1 BAG IVPB SCH (18:00)
[2019-11-21] MEDS ORDERED: Non-Formulary Item 1 EACH (Doxepin Hcl [Doxepin Hcl] 100 MG) PO SCH (21:00)
[2019-11-21] MEDS ORDERED: Gabapentin 300 MG CAP PO SCH (21:00)
[2019-11-21] MEDS: Aspirin 81 mg Enteric Coated Tablet PO SCH (21:30)
[2019-11-21] MEDS: Ferrous Gluconate 324 MG TAB PO SCH (21:30)
[2019-11-21] MEDS: Doxepin HCl 25 MG CAP PO SCH (21:32)
[2019-11-21] MEDS: clonazePAM 1 MG TAB PO SCH (21:32)
[2019-11-21] MEDS: Senokot S 8.6-50 MG TAB PO SCH (21:33)
[2019-11-21] MEDS: Gabapentin 300 MG CAP PO SCH (21:33)
[2019-11-22 05:30] LABS: Mean Corpuscular HGB CONC 32.9 g/dL (32.0-36.0); Mean Corpuscular Hemoglobin 28.9 pg (27.0-31.0); Mean Corpuscular Volume 87.7 fL (78.0-98.0); Mean Platelet Volume 7.8 fL (7.4-10.4); Platelet Count 252 thou/uL (130-400); RBC Distribution Width 13.7 % (11.5-14.5); Red Blood Cell (RBC) Count 4.16 mill/uL (4.20-5.40); White Blood Cell (WBC) Count 13.8 thou/uL (4.8-10.8)
[2019-11-22] MEDS: Ketorolac Tromethamine 30 MG/ML VIAL IVP SCH ×3 (05:35→22:37)
[2019-11-22] MEDS: HYDROcodone/Acetaminophen 10/325 mg Tablet PO PRN ×5 (05:36→17:27)
--- NOTE | 2019-11-22 06:39 | PDOC.FM ---
- Subjective Subjective: No overnight events. Pain is well controlled with medications. She is up sitting in the chair this morning. Ate 100% of breakfast. Worked with PT yesterday, will be involved with group therapy today. - Objective MAR Reviewed: Yes Vital Signs & Weight: Vital Signs (12 hours) Temp Pulse Resp BP Pulse Ox 11/22/19 03:11 98.2 F 74 16 115/74 97 11/21/19 23:38 98.1 F 68 16 107/70 91 L Weight Weight 89.811 kg I&O: 11/20/19 11/21/19 11/22/19 06:59 06:59 06:59 Intake Total 2650 Output Total 2825 Balance -175 Result Diagrams: 11/22/19 05:03 Phys Exam - Physical Examination Constitutional: NAD HEENT: moist MMs Neck: supple Respiratory: no wheezing, clear to auscultation bilateral Cardiovascular: RRR, no significant murmur Gastrointestinal: soft, non-tender Musculoskeletal: pulses present right knee wrapped with NAI and elevated Neurological: moves all 4 limbs Psychiatric: normal affect, A&O x 3 Deviation from normal: Diffusely scaly/dry skin Dx/Plan - Plan Plan: Ms Felipe is a 44yo female with multiple psychiatric conditions, HTN, HLD admitted for right knee replacement. Right Knee Replacement - Pain management per ortho - Regular diet - Continue to use IS - PT consulted PTSD/Anxiety/Depression - Continue home medications - Monitor for respiratory depression with use of Benzo at HS and [place] HTN/HLD - Resumed home medications DVT ppx: SCDs PCP: Dr Uribe at [facility] Addendum - Attending - Attending Attestation Date/Time: 11/22/19 1105 I personally evaluated the patient and discussed the management with Dr. Patton I agree with the History, Examination, Assessment and Plan documented above with any addition or exceptions noted below. Chronic problems controlled. will continue to follow during this hospital stay.
[2019-11-22] MEDS: Sodium Chloride 0.9% 1,000 ML IV SCH ×2 (07:40→19:31)
[2019-11-22] MEDS: Multivitamin W/ Minerals 1 TAB PO SCH (08:10)
[2019-11-22] MEDS: Ferrous Gluconate 324 MG TAB PO SCH ×2 (08:10→20:05)
[2019-11-22] MEDS: Ascorbic Acid 500 mg Chewable Tablet PO SCH (08:10)
[2019-11-22] MEDS: Senokot S 8.6-50 MG TAB PO SCH ×2 (08:10→20:04)
[2019-11-22] MEDS: Aspirin 81 mg Enteric Coated Tablet PO SCH ×2 (08:11→20:40)
[2019-11-22] MEDS ORDERED: ASCORBIC ACID PO SCH (09:00)
[2019-11-22] MEDS ORDERED: Non-Formulary Item 1 EACH (Multivitamin [Multi-Vitamin Daily] 1 TABLET) PO SCH (09:00)
[2019-11-22] MEDS ORDERED: Multivit, Therapeutic 1 TAB PO SCH (09:00)
--- NOTE | 2019-11-22 10:28 | OP ---
DATE OF PROCEDURE: 11/21/2019 PREOPERATIVE DIAGNOSIS: Right knee osteoarthritis, traumatic. POSTOPERATIVE DIAGNOSIS: Right knee osteoarthritis, traumatic. PROCEDURE PERFORMED: Right total knee arthroplasty. GAS GOLF CART REPAIRER: Rachid Apodaca PA-C. ANESTHESIA: Allyson Aldridge CRNA. The patient received LMA, single-shot sciatic and adductor canal. ESTIMATED BLOOD LOSS: 100 mL. TOURNIQUET TIME: 78 minutes at 300 mmHg. ANTIBIOTICS: Ancef 2 g, vancomycin 1.5 g, and TXA 1 g. IMPLANTS: The patient had Bea Triathlon size 4 CR femur, Triathlon size 3 tibial base plate, X3 9 CS poly, and a Triathlon X3 A29 patella. COMPLICATIONS: None. HISTORY OF PRESENT ILLNESS: Ms. Felipe is a 44-year-old female, presents with right knee pain. The patient had previous surgeries performed by Dr. Menjivar. The patient had pain for 8 years, failed conservative measures, injections, anti-inflammatories, weight reduction. I discussed with the patient risks, benefits of right total knee arthroplasty. The patient history of ichthyosis and discussed the risks and benefits, potential infection associated with that. She understood the risks and benefits to include pain, scar, bleeding, infection, damage to vital structures, decreased range of motion and strength, need for further surgeries, need for revision in the future, loss of life or limb. The patient understood the risks and benefits and elected to proceed. DESCRIPTION OF PROCEDURE: Time-out was performed designating the patient's right lower extremity as the operative site based on site, consents, markings. After time-out, the patient's right upper extremity was prepped and draped, and sterile tourniquet was brought up and left for 78 minutes. Anterior midline approach, medial patellar arthrotomy fat pad excision, medial soft tissue release soft tissued debrided sharply, everted the patella, mapped out the femur cut, 0 degrees varus and valgus, 11, 6, with 5 degrees of anterior slope. We placed our 3-degree external guide into place and pinned into position. The patient sized to about a medial lateral to 4, felt like 5 was going too big medial to lateral. Therefore, we placed a 4. It shows slight notch, a bit of notch superiorly when this performed. We placed our block. We cut our anterior, posterior, and chamfer cuts, having the notching anteriorly. We removed our implants, removed our guide, mapped out our tibia, cut 0 degrees varus and valgus, 2, 5, and 4 degrees of slope, removed our bone. We then placed a laminar employee relations manager, removed our medial and lateral meniscus, decompressed our PCL. We took down the osteophytes medially on the tibia as well as the femur and removed all bony osteophytes and completed our tibia cut laterally , which has had a little bit of bone left. We then pinned our tray into position, placed a 9 poly in the femur. We the internal rotated just a little bit just to match the femur in extension, flexion, and rotation. Overall, we liked the position on rotation, everted the patella, cut it down from about 24 down to roughly 12. We placed A29 patella. The patient had overall good tracking, good alignment. We drilled the lugs for femur, removed our tibia, poly, cut our keel for tibia, removed our implants, washed, cemented our tibia, removed excess cement. We placed our poly, cemented our femur, removed excess cement, cemented our patella, flexed it up, ensure that there was no excess cement, washed out the joint and then closed the arthrotomy with #2 Vicryl, #2 Stratafix, 0 Stratafix, and 2-0 Stratafix, and glue. The patient will be admitted per [place] protocol, will be followed up in- house. Job ID: [id number] [facility]
[2019-11-22] MEDS: Doxepin HCl 25 MG CAP PO SCH (20:04)
[2019-11-22] MEDS: clonazePAM 1 MG TAB PO SCH (20:05)
[2019-11-22] MEDS: Gabapentin 300 MG CAP PO SCH (20:05)
[2019-11-23] MEDS: HYDROcodone/Acetaminophen 10/325 mg Tablet PO PRN ×3 (01:17→11:38)
[2019-11-23 05:14] LABS: Hemoglobin 12.6 g/dL (12.0-16.0); Mean Corpuscular HGB CONC 33.8 g/dL (32.0-36.0); Mean Corpuscular Hemoglobin 29.7 pg (27.0-31.0); Mean Platelet Volume 7.7 fL (7.4-10.4); Platelet Count 251 thou/uL (130-400); RBC Distribution Width 13.9 % (11.5-14.5); Red Blood Cell (RBC) Count 4.23 mill/uL (4.20-5.40); White Blood Cell (WBC) Count 15.9 thou/uL (4.8-10.8)
[2019-11-23] MEDS: Ketorolac Tromethamine 30 MG/ML VIAL IVP SCH ×2 (06:23→14:36)
[2019-11-23] MEDS: Sodium Chloride 0.9% 1,000 ML IV SCH ×2 (06:33→14:50)
--- NOTE | 2019-11-23 06:54 | PDOC.FM ---
- Subjective Subjective: No overnight events. Slept well. Denies nausea, vomiting. Reports having a little more pain today. She worked with PT yesterday, plans to have home health PT for 2 weeks. She is to be discharged today after lunch. - Objective MAR Reviewed: Yes Vital Signs & Weight: Vital Signs (12 hours) Temp Pulse Resp BP Pulse Ox 11/23/19 03:24 98.1 F 80 18 116/74 96 11/22/19 23:08 98.3 F 80 16 119/75 96 11/22/19 19:26 97.7 F 76 16 134/89 97 Weight Admit Weight 89.811 kg Weight 89.811 kg I&O: 11/21/19 11/22/19 11/23/19 06:59 06:59 06:59 Intake Total 2650 1805 Output Total 2825 Balance -175 1805 Result Diagrams: 11/23/19 04:53 Phys Exam - Physical Examination Constitutional: NAD HEENT: moist MMs Neck: supple Respiratory: no wheezing, clear to auscultation bilateral Cardiovascular: RRR, no significant murmur Gastrointestinal: soft, non-tender right leg wrapped and elevated Neurological: moves all 4 limbs Psychiatric: normal affect, A&O x 3 Skin: normal turgor Dx/Plan - Plan Plan: Ms Felipe is a 44yo female with multiple psychiatric conditions, HTN, HLD admitted for right knee replacement. Right Knee Replacement - Pain management per ortho - Regular diet - Continue to use IS - PT consulted - Discharge today and f/u with Dr Gonzalez in 3 wks PTSD/Anxiety/Depression - Continue home medications - Monitor for respiratory depression with use of Benzo at and [place] HTN/HLD - Continue home meds DVT ppx: SCDs PCP: Dr Uribe at [facility] - Attending - Attending Attestation Date/Time: 11/23/19 1020 I personally evaluated the patient and discussed the management with Dr. Patton I agree with the History, Examination, Assessment and Plan documented above with any addition or exceptions noted below. Stable. d/c per primary team.
[2019-11-23] MEDS: Aspirin 81 mg Enteric Coated Tablet PO SCH (07:55)
[2019-11-23] MEDS: Ferrous Gluconate 324 MG TAB PO SCH (07:55)
[2019-11-23] MEDS: Senokot S 8.6-50 MG TAB PO SCH (07:55)
[2019-11-23] MEDS: Ascorbic Acid 500 mg Chewable Tablet PO SCH (07:55)
[2019-11-23] MEDS: Multivitamin W/ Minerals 1 TAB PO SCH (07:55)
[2019-11-23 12:16] VITALS: BP 121/83; TEMP 97.5
== END 2019-11-23 14:59 | disposition home or self-care (01) ==
LOC: SDC 05:52 → SJJU 07:01 → SDC 11-23 14:59
PROVIDERS: ATTEND Orthopaedic Surgery
PROC: 0SRC0J9 Replacement of Right Knee Joint with Synthetic Substitute, Cemented, Open Approach (ICD-10-PCS; principal; 2019-11-21)
PROC: 3E0T3BZ Introduction of Anesthetic Agent into Peripheral Nerves and Plexi, Percutaneous Approach (ICD-10-PCS; 2019-11-21)
PROC: 3E0T3BZ Introduction of Anesthetic Agent into Peripheral Nerves and Plexi, Percutaneous Approach (ICD-10-PCS; 2019-11-21)
DX: M17.31 Unilateral post-traumatic osteoarthritis, right knee (principal); T14.90XS Injury, unspecified, sequela; M17.0 Bilateral primary osteoarthritis of knee; G89.18 Other acute postprocedural pain; F31.9 Bipolar disorder, unspecified; F41.9 Anxiety disorder, unspecified; F17.210 Nicotine dependence, cigarettes, uncomplicated; G43.909 Migraine, unspecified, not intractable, without status migrainosus; K58.9 Irritable bowel syndrome, unspecified; F12.11 Cannabis abuse, in remission; I11.9 Hypertensive heart disease without heart failure; E78.00 Pure hypercholesterolemia, unspecified; Q80.2 Lamellar ichthyosis; E78.5 Hyperlipidemia, unspecified; F43.10 Post-traumatic stress disorder, unspecified; Z79.899 Other long term (current) drug therapy; Z91.013 Allergy to seafood; Z91.018 Allergy to other foods; Z98.890 Other specified postprocedural states; X58.XXXS Exposure to other specified factors, sequela
CPT/HCPCS: 27447; 64445; 64448; 73560; 85027; 97116 ×3; 97139 ×4; 97150 ×2; 97530 ×3; 98961; C1713; C1776; 36415; J0670; J0690; J1100; J1885; J2001; J2250; J2405; J2704; J2795; J3010; J3490; S0020; S0028

== ENCOUNTER 2020-10-15 09:18 | Outpatient (CLI) | payer MEDICARE, MEDICAID ==
--- NOTE | 2020-10-15 10:11 | MMO ---
Bilateral MAMMO Bilat Diag DDI+DARION. CLINICAL HISTORY: Patient is 45 years old and is seen for diagnostic exam,palpable abnormality in the right breast, non-bloody discharge in both breasts and pain in the right breast. The patient has the following family history of breast cancer: mother, at age 22, and 54; maternal grandmother and maternal aunt. The patient has a history of cervical cancer at age 37. The patient has a history of left Ultrasound Guided Core Biopsy in March, - benign and right Stereotatic Biopsy in May, - benign. VIEWS: The views performed were: bilateral craniocaudal with tomosynthesis; bilateral mediolateral oblique with tomosynthesis; and bilateral mediolateral with tomosynthesis. FILMS COMPARED: The present examination has been compared to prior imaging studies performed at [facility] on 04/04/2015, 03/10/2016, 03/24/2017 and 10/15/2020. This study has been interpreted with the assistance of computer-aided detection. MAMMOGRAM FINDINGS: There are scattered fibroglandular densities. There are multiple stable masses of varying size with circumscribed margins seen in both breasts. There are no suspicious masses, suspicious calcifications, or new areas of architectural distortion. IMPRESSION: THERE IS NO MAMMOGRAPHIC EVIDENCE OF MALIGNANCY. A ROUTINE FOLLOW-UP MAMMOGRAM IN 1 YEAR IS RECOMMENDED. THE RESULTS OF THIS EXAM WERE SENT TO THE PATIENT. ACR BI-RADS Category 2 - Benign finding MAMMOGRAPHY NOTE: 1. A negative mammogram report should not delay a biopsy if a dominant of clinically suspicious mass is present. 2. Approximately 10% to 15% of breast cancers are not detected by mammography. 3. Adenosis and dense breasts may obscure an underlying neoplasm. Reported by: DALE ALVAREZ MD Electonically Signed: [id number]
--- NOTE | 2020-10-15 10:12 | ULT ---
US Breast Limited Rt: 10/15/2020 12:00 AM CLINICAL INDICATION: Palpable right axillary mass. COMPARISON: Mammograms 10/15/2020, 04/07/2017 TECHNIQUE: Multiplanar grayscale and color Doppler images were obtained of the breast. FINDINGS: Normal appearing parenchyma is seen. Normal-appearing lymph nodes are also seen in the right axillary region that still demonstrate normal fatty john. The largest measures 1.9 cm in size. No suspicious mass is seen. No suspicious shadowing is seen. No cyst is identified. IMPRESSION: BI-RADS Category 2-benign findings.
== END 2020-10-15 09:19 | disposition home or self-care (01) ==
LOC: BICMAMMO 09:18
PROVIDERS: ATTEND Family Medicine
DX: N63.0 Unspecified lump in unspecified breast (principal)
CPT/HCPCS: 76642; 77066; G0279

== ENCOUNTER 2021-04-10 11:53 | Outpatient (CLI) | payer MEDICARE, MEDICAID ==
[2021-04-10 14:51] LABS: Prothrombin Time 10.9 sec (9.5-12.1)
[2021-04-10 15:07] LABS: #Basophils 0.1 10x3/uL (0.0-0.2); #Eosinphils 0.3 10x3/uL (0.0-0.5); #Monocytes 1.1 10x3/uL (0.0-1.1); #Neutrophils 8.2 10x3/uL (1.5-8.4); %Basophils 0.5 % (0.0-2.0); %Eosinophils 2.3 % (0.0-6.0); %Lymphocytes 35.5 % (18.0-47.0); %Monocytes 7.1 % (0.0-10.0); %Neutrophils 54.3 % (40.0-75.0); Hemoglobin 14.1 g/dL (12.0-15.5); Mean Corpuscular Volume 83.4 fl (81.6-98.3); Mean Platelet Volume 10.7 fl (7.4-10.4); Platelet Count 336 10x3/uL (150-450); RBC Distribution Width 15.2 % (11.5-14.5); White Blood Cell (WBC) Count 15.1 10x3/uL (3.5-10.5)
[2021-04-10 15:11] LABS: Anion Gap 15 mmol/L (10-20); BUN (Urea Nitrogen) 10 mg/dL (7.0-18.7); Calc. Creatinine Clearance 0 mL/min (70-130); Calcium 9.3 mg/dL (7.8-10.44); Carbon Dioxide 23 mmol/L (22-29); Chloride 107 mmol/L (98-107); Glucose 73 mg/dL (70-105); Potassium 4.3 mmol/L (3.5-5.1); Sodium 141 mmol/L (136-145)
[2021-04-11 11:09] LABS: SARS-CoV-2 PCR by NAA Not Detected (NotDetected)
== END 2021-04-10 11:54 | disposition home or self-care (01) ==
LOC: LABBT 11:53
PROVIDERS: ATTEND Orthopaedic Surgery
DX: Z01.818 Encounter for other preprocedural examination (principal); M17.12 Unilateral primary osteoarthritis, left knee; Z20.822 Contact with and (suspected) exposure to COVID-19
CPT/HCPCS: 80048; 85025; 85610; 87081; U0003; U0005

== ENCOUNTER 2021-04-15 05:41 | Inpatient (IN) | payer MEDICARE, MEDICAID ==
[2021-04-14 11:30] VITALS: BMI 32.3
[2021-04-15] MEDS ORDERED: Midazolam HCl 2 mg/2 ml Vial ONE (06:30)
[2021-04-15] MEDS ORDERED: Fentanyl 100 MCG/2 ML VIAL ONE ×5 (06:30→10:20)
[2021-04-15] MEDS ORDERED: EPINEPHrine 1 MG/ML AMP ONE (06:31)
[2021-04-15] MEDS ORDERED: Bupivacaine 0.25% HCL 30 ML VIAL ONE (06:31)
[2021-04-15] MEDS ORDERED: Sodium Chloride 0.9% 100 ML ONE (06:37)
[2021-04-15] MEDS ORDERED: Tranexamic Acid 1,000 MG/10 ML VIAL ONE (06:37)
[2021-04-15] MEDS ORDERED: Vancomycin HCl 1.5 GM in Sodium Chloride 0.9% 250 ML 300 ML IVPB SCH ×2 (06:45→20:00)
[2021-04-15] MEDS ORDERED: Ketorolac Tromethamine 30 MG/ML VIAL ONE (07:06)
[2021-04-15] MEDS ORDERED: Rocuronium Bromide 10 MG/ML (10ML VIAL) ONE (07:06)
[2021-04-15] MEDS ORDERED: Dexamethasone 20 MG/5 ML VIAL ONE (07:06)
[2021-04-15] MEDS ORDERED: Ropivacaine 2% HCl/PF (20 MG/10 ML VIAL) ONE (07:06)
[2021-04-15] MEDS ORDERED: Bupivacaine HCl 0.5%/Epinephrine 1:200,000/PF 30 ml Vial ONE (07:06)
[2021-04-15] MEDS ORDERED: Ondansetron PF 4 MG/2 ML Vial ONE (07:06)
[2021-04-15] MEDS ORDERED: PROPOFOL 200 MG/20 ML VIAL ONE (07:06)
[2021-04-15] MEDS ORDERED: Fentanyl 100 MCG/2 ML VIAL SLOW IVP PRN ×3 (07:32→09:32)
[2021-04-15] MEDS ORDERED: Zolpidem Tartrate 5 MG TAB PO PRN ×2 (07:45→21:00)
[2021-04-15] MEDS ORDERED: Promethazine HCl 25 MG/ML VIAL IM PRN ×2 (07:45→09:32)
[2021-04-15] MEDS ORDERED: Ondansetron PF 4 MG/2 ML Vial IVP PRN ×2 (07:45→09:32)
[2021-04-15] MEDS ORDERED: HYDROcodone/Acetaminophen 10/325 mg Tablet PO PRN ×3 (07:45→09:32)
[2021-04-15] MEDS ORDERED: Ropivacaine 0.2% 550 ML 550 ML NERVE BLCK SCH (07:45)
[2021-04-15] MEDS ORDERED: traMADol HCl 50 MG TAB PO PRN ×3 (07:45→09:32)
[2021-04-15] MEDS ORDERED: diphenhydrAMINE 25 MG CAP PO PRN (09:32)
[2021-04-15] MEDS ORDERED: Acetaminophen 325 MG TAB PO PRN (09:32)
[2021-04-15] MEDS ORDERED: Promethazine HCl 25 MG/ML VIAL ONE (10:23)
[2021-04-15] MEDS: Sodium Chloride 0.9% 1,000 ML IV SCH ×2 (11:17→18:36)
[2021-04-15] MEDS: Aspirin 81 mg Enteric Coated Tablet PO SCH ×2 (11:38→21:05)
[2021-04-15] MEDS: Ketorolac Tromethamine 30 MG/ML VIAL IVP SCH ×3 (11:38→23:18)
[2021-04-15] MEDS ORDERED: clonazePAM 0.5 MG TAB PO PRN (11:54)
[2021-04-15] MEDS ORDERED: hydrOXYzine 25 MG TAB PO PRN (11:55)
[2021-04-15] MEDS: HYDROcodone/Acetaminophen 10/325 mg Tablet PO PRN ×2 (13:58→21:06)
[2021-04-15] MEDS ORDERED: Ketorolac Tromethamine 30 MG/ML VIAL IVP SCH (14:00)
[2021-04-15] MEDS: CEFAZOLIN 2 GM in Premix Bag 1 BAG IVPB SCH ×2 (15:10→23:18)
[2021-04-15] MEDS ORDERED: Aspirin 81 mg Enteric Coated Tablet ONE (21:02)
[2021-04-15] MEDS: Gabapentin 300 MG CAP PO SCH (21:04)
[2021-04-15] MEDS: Rosuvastatin 20 MG TAB PO SCH (21:05)
[2021-04-15] MEDS: clonazePAM 1 MG TAB PO SCH (21:05)
[2021-04-15] MEDS: Methocarbamol 500 MG TAB PO SCH (21:05)
[2021-04-15] MEDS: Doxepin HCl 25 MG CAP PO SCH (21:06)
[2021-04-15] MEDS: Prazosin HCl 1 MG CAP PO SCH (21:06)
[2021-04-16] MEDS: Sodium Chloride 0.9% 1,000 ML IV SCH ×2 (05:17→15:54)
[2021-04-16] MEDS: Ketorolac Tromethamine 30 MG/ML VIAL IVP SCH ×3 (05:18→17:06)
[2021-04-16 06:45] LABS: Hemoglobin 12.8 g/dL (12.0-16.0); Mean Corpuscular HGB CONC 36.1 g/dL (32.0-36.0); Mean Corpuscular Hemoglobin 32.1 pg (27.0-31.0); Mean Platelet Volume 7.8 fL (7.4-10.4); Platelet Count 247 thou/uL (130-400); RBC Distribution Width 13.8 % (11.5-14.5); Red Blood Cell (RBC) Count 3.99 mill/uL (4.20-5.40); White Blood Cell (WBC) Count 18.7 thou/uL (4.8-10.8)
[2021-04-16] MEDS: Ferrous Gluconate 324 MG TAB PO SCH ×2 (08:30→20:30)
[2021-04-16] MEDS: Multivitamin W/ Minerals 1 TAB PO SCH (08:30)
[2021-04-16] MEDS: Ascorbic Acid 500 mg Chewable Tablet PO SCH (08:30)
[2021-04-16] MEDS: Senokot S 8.6-50 MG TAB PO SCH ×2 (08:30→20:30)
[2021-04-16] MEDS: Multivit, Therapeutic 1 TAB PO SCH (08:30)
[2021-04-16] MEDS: Aspirin 81 mg Enteric Coated Tablet PO SCH ×2 (08:30→20:29)
[2021-04-16] MEDS: HYDROcodone/Acetaminophen 10/325 mg Tablet PO PRN ×3 (08:31→21:31)
[2021-04-16] MEDS: Methocarbamol 500 MG TAB PO SCH (20:28)
[2021-04-16] MEDS: Doxepin HCl 25 MG CAP PO SCH (20:28)
[2021-04-16] MEDS: Prazosin HCl 1 MG CAP PO SCH (20:29)
[2021-04-16] MEDS: Rosuvastatin 20 MG TAB PO SCH (20:29)
[2021-04-16] MEDS: clonazePAM 1 MG TAB PO SCH (20:31)
[2021-04-16] MEDS: Gabapentin 300 MG CAP PO SCH (20:31)
[2021-04-17] MEDS: Ketorolac Tromethamine 30 MG/ML VIAL IVP SCH ×2 (00:30→05:30)
[2021-04-17] MEDS: Sodium Chloride 0.9% 1,000 ML IV SCH ×2 (01:32→11:32)
[2021-04-17] MEDS: HYDROcodone/Acetaminophen 10/325 mg Tablet PO PRN ×3 (01:34→09:56)
[2021-04-17 06:06] LABS: Hemoglobin 12.4 g/dL (12.0-16.0); Mean Corpuscular Hemoglobin 32.1 pg (27.0-31.0); Mean Corpuscular Volume 89.2 fL (78.0-98.0); Mean Platelet Volume 7.9 fL (7.4-10.4); Platelet Count 240 thou/uL (130-400); RBC Distribution Width 13.9 % (11.5-14.5); Red Blood Cell (RBC) Count 3.87 mill/uL (4.20-5.40); White Blood Cell (WBC) Count 14.5 thou/uL (4.8-10.8)
[2021-04-17] MEDS: Ferrous Gluconate 324 MG TAB PO SCH (08:17)
[2021-04-17] MEDS: Multivitamin W/ Minerals 1 TAB PO SCH (08:17)
[2021-04-17] MEDS: Aspirin 81 mg Enteric Coated Tablet PO SCH (08:17)
[2021-04-17] MEDS: Senokot S 8.6-50 MG TAB PO SCH (08:17)
[2021-04-17] MEDS: Ascorbic Acid 500 mg Chewable Tablet PO SCH (08:18)
[2021-04-17] MEDS: Multivit, Therapeutic 1 TAB PO SCH (08:18)
[2021-04-17 11:31] VITALS: BP 120/79; TEMP 97.7
== END 2021-04-17 11:30 | disposition home or self-care (01) | DRG 470 ==
LOC: SDC 05:41 → SJJU 09:32
PROVIDERS: ADMIT Orthopaedic Surgery; ATTEND Orthopaedic Surgery
PROC: 0SRD0J9 Replacement of Left Knee Joint with Synthetic Substitute, Cemented, Open Approach (ICD-10-PCS; principal; 2021-04-15)
DX: M17.12 Unilateral primary osteoarthritis, left knee (principal); E78.5 Hyperlipidemia, unspecified; F41.9 Anxiety disorder, unspecified; K21.9 Gastro-esophageal reflux disease without esophagitis; F32.9 Major depressive disorder, single episode, unspecified; F43.10 Post-traumatic stress disorder, unspecified; Z91.013 Allergy to seafood; Z91.018 Allergy to other foods; Z79.899 Other long term (current) drug therapy; Z85.41 Personal history of malignant neoplasm of cervix uteri; Z85.3 Personal history of malignant neoplasm of breast; Z90.710 Acquired absence of both cervix and uterus; Z98.890 Other specified postprocedural states; Z87.891 Personal history of nicotine dependence
CPT/HCPCS: 36415; 85027; A4306; C1713; C1776; J0171; J0690; J1100; J1885; J2250; J2405; J2550; J2704; J2795; J3010; J3370; J3490; J7050; S0020

== ENCOUNTER 2021-09-25 09:02 | Outpatient (CLI) | payer MEDICARE, MEDICAID | END 2021-09-25 09:03 | disposition home or self-care (01) | LOC: NM 09:02 | PROVIDERS: ATTEND Family Medicine | DX: R74.8 Abnormal levels of other serum enzymes (principal) | CPT/HCPCS: 78306; A9503 ==

== ENCOUNTER 2022-04-23 09:13 | Outpatient (CLI) | payer OTHER | END 2022-04-23 09:14 | disposition home or self-care (01) | LOC: BICMAMMO 09:13 | PROVIDERS: ATTEND Family Medicine | DX: N64.4 Mastodynia (principal); Z87.2 Personal history of diseases of the skin and subcutaneous tissue | CPT/HCPCS: 76999; G0279 ==

== ENCOUNTER 2022-10-22 08:54 | Outpatient (CLI) | payer OTHER | END 2022-10-22 08:55 | disposition home or self-care (01) | LOC: BICMAMMO 08:54 | PROVIDERS: ATTEND Family Medicine | DX: Z13.820 Encounter for screening for osteoporosis (principal); Z90.710 Acquired absence of both cervix and uterus | CPT/HCPCS: 77080 ==

== ENCOUNTER 2023-01-20 11:49 | Emergency (ER) | payer OTHER ==
[2023-01-20 12:31] LABS: Hemoglobin 15.3 g/dL (12.0-16.0); Mean Corpuscular HGB CONC 35.8 g/dL (32.0-36.0); Mean Corpuscular Hemoglobin 32.3 pg (27.0-31.0); Mean Corpuscular Volume 90.3 fl (78.0-98.0); Mean Platelet Volume 7.8 fL (7.4-10.4); Platelet Count 272 10x3/uL (130-400); RBC Distribution Width 14.2 % (11.5-14.5); Red Blood Cell (RBC) Count 4.72 mill/uL (4.20-5.40)
[2023-01-20] MEDS ORDERED: Iopamidol-370 76% 500 ML MDV (1 ML CHARGE) ONE (12:39)
[2023-01-20 12:41] LABS: ALT (SGPT) 20 U/L (8-55); AST (SGOT) 33 U/L (5-34); Albumin 4.3 g/dL (3.5-5.0); Alkaline Phosphatase 150 U/L (40-110); Anion Gap 14 mmol/L (10-20); BUN (Urea Nitrogen) 8 mg/dL (7.0-18.7); Bilirubin, Total 0.3 mg/dL (0.2-1.2); Calc. Creatinine Clearance 0 mL/min (70-130); Calcium 9.4 mg/dL (7.8-10.44); Carbon Dioxide 24 mmol/L (22-29); Chloride 108 mmol/L (98-107); Estimated GFR 104; Globulin 3.4 g/dL (2.4-3.5); Glucose 99 mg/dL (70-105); Potassium 4.5 mmol/L (3.5-5.1); Protein, Total 7.7 g/dL (6.0-8.3); Sodium 141 mmol/L (136-145)
[2023-01-20 13:01] LABS: Eosinophils 1 % (0-10); Lymphocytes 38 % (21-51); MDiff Complete? YES; Monocytes 4 % (0-10); Neutrophil 56 % (42-75); Platelet Morphology Comment Appears Adequate; RBC Morphology Normal; White Blood Cell (WBC) Count 14.7 10x3/uL (4.8-10.8)
[2023-01-20] MEDS ORDERED: Ketorolac Tromethamine 30 MG/ML VIAL ONE (13:44)
== END 2023-01-20 14:40 | disposition home or self-care (01) ==
LOC: ERS 11:49
DX: S20.211A Contusion of right front wall of thorax, initial encounter (principal); S90.31XA Contusion of right foot, initial encounter; D72.829 Elevated white blood cell count, unspecified; W17.89XA Other fall from one level to another, initial encounter
CPT/HCPCS: 36415; 71046; 74177; 80053; 82550; 85025; 96374; J1885; Q9967

== ENCOUNTER 2023-08-12 13:06 | Outpatient (CLI) | payer OTHER | END 2023-08-12 13:07 | disposition home or self-care (01) | LOC: SCSMRI 13:06 | PROVIDERS: ATTEND Psychiatry & Neurology Neurology | DX: R51.9 Headache, unspecified (principal) | CPT/HCPCS: 70553 ==

== ENCOUNTER 2024-05-09 13:29 | Outpatient (CLI) | payer MEDICARE, MEDICAID | END 2024-05-09 13:30 | disposition home or self-care (01) | LOC: BICMAMMO 13:29 | PROVIDERS: ATTEND Physician Assistant | DX: Z12.31 Encounter for screening mammogram for malignant neoplasm of breast (principal); Z80.3 Family history of malignant neoplasm of breast; Z91.89 Other specified personal risk factors, not elsewhere classified; Z85.41 Personal history of malignant neoplasm of cervix uteri | CPT/HCPCS: 77063; 77067 ==

== ENCOUNTER 2024-11-24 10:35 | Outpatient (CLI) | payer MEDICARE | END 2024-11-24 10:36 | disposition home or self-care (01) | LOC: SCSRAD 10:35 | PROVIDERS: ATTEND Nurse Practitioner Family | DX: M25.562 Pain in left knee (principal); S59.902A Unspecified injury of left elbow, initial encounter ==